=== PATIENT | female | born 1980 | race African-American/Black ===

== ENCOUNTER 2019-10-08 17:34 | Emergency (ER) | payer SELFPAY ==
[2019-10-08 17:42] VITALS: TEMP 98; BMI 20.5
--- NOTE | 2019-10-08 18:11 | PDOC ---
Documentation entered by Dejuan Simpson SCRIBE, acting as scribe for Anamaria West MD. Anamaria West MD: This documentation has been prepared by the Calvin gudino Angel, SCRIBE, under my direction and personally reviewed by me in its entirety. I confirm that the documentation accurately reflects all work, treatment, procedures, and medical decision making performed by me. History of Present Illness - General Chief Complaint: Alcohol intoxication Stated Complaint: INTOX History Source: EMS Exam Limitations: Intoxication - History of Present Illness Initial Comments: 10/08/19 17:39 The patient is a 36 year old female with a significant past medical history of who presents to the ED BIBA intoxicated. The patient was found laying in grass by [place] bus stop. Once EMS was able to bring her to her feet she started running into the street at which point police had EMS bring her into the ED. The patient denies any SI/HI, auditory and visual hallucinations, or any trauma. The patient admits to alcohol usage. Patient denies all medical complaints and is asking to charge her phone so she can go home. States she can either take a cab home or have her friend Dion or Akhil pick her up. Past History - Medical History Allergies/Adverse Reactions: Allergies Allergy/AdvReac Type Severity Reaction Status Date / Time No Known Allergies Allergy Verified 10/08/19 17:38 Home Medications: Ambulatory Orders NK [No Known Home Medication] 10/08/19 Review of Systems - Review of Systems Able to Perform ROS?: Yes Comments:: 10/08/19 17:48 GENERAL/CONSTITUTIONAL: No fever or chills. No weakness. HEAD, EYES, EARS, NOSE AND THROAT: No change in vision. No ear pain or discharge. No sore throat. CARDIOVASCULAR: No chest pain or shortness of breath. RESPIRATORY: No cough, wheezing, or hemoptysis. GASTROINTESTINAL: No nausea, vomiting, diarrhea or constipation. GENITOURINARY: No dysuria, frequency, or change in urination. MUSCULOSKELETAL: No joint or muscle swelling or pain. No neck or back pain. SKIN: No rash NEUROLOGIC: No headache, vertigo, loss of consciousness, or change in strength/sensation. ENDOCRINE: No increased thirst. No abnormal weight change. HEMATOLOGIC/LYMPHATIC: No anemia, easy bleeding, or history of blood clots. ALLERGIC/IMMUNOLOGIC: No hives or skin allergy. *Physical Exam - Physical Exam 10/08/19 17:48 GENERAL: Awake, alert, and fully oriented x3, in no acute distress HEAD: No signs of trauma EYES: PERRLA, EOMI, sclera anicteric, conjunctiva clear ENT: Auricles normal inspection, hearing grossly normal, nares patent, oropharynx clear without exudates. Moist mucosa NECK: Normal ROM, supple, no lymphadenopathy, JVD, or masses LUNGS: Breath sounds equal, clear to auscultation bilaterally. No wheezes, and no crackles HEART: Regular rate and rhythm, normal S1 and S2, no murmurs, rubs or gallops ABDOMEN: Soft, nontender, normoactive bowel sounds. No guarding, no rebound. No masses EXTREMITIES: Normal range of motion, no edema. No clubbing or cyanosis. No cords, erythema, or tenderness NEUROLOGICAL: Cranial nerves II through XII grossly intact. Normal speech, ambulatory with steady gait. SKIN: Warm, Dry, normal turgor, no rashes or lesions noted. Medical Decision Making - Medical Decision Making 10/08/19 18:05 36 yo F here with etoh intoxication, denies falls or trauma, no evidence of trauma on exam, Aox3 and ambulatory with steady gait, no indication for additional workup at this time and patient clinically sober. Plan: -spoke with patient's friend Dion who stated he would come to pick her up and patient agreeable to wait for him to leave -will d/c with return precautions, patient counseled on dangers of excessive etoh intake, recommend PMD f/u as needed This clinical encounter is taking place during a federal and state health care emergency attributable to the novel Baez Virus pandemic. The [place] of the Department of Health and Human Services has declared, pursuant to the Public Health Service Act 319F-3 (42 [place]C. 247d-6d), that a covered persons activities related to medical countermeasures against COVID-19 will be immune from liability under Federal and State law. Discharge - Discharge Information Problems reviewed: Yes Clinical Impression/Diagnosis: Alcohol intoxication Qualifiers: Complication of substance-induced condition: with unspecified complication Qualified Code(s): F10.929 - Alcohol use, unspecified with intoxication, unspecified Condition: Improved Disposition: HOME - Admission No - Follow up/Referral - Patient Discharge Instructions Patient Printed Discharge Instructions: DI for Alcohol Abuse Additional Instructions: You should avoid excessive alcohol use as this can be dangerous to your health. You should make sure to drink plenty of fluids at home. Return to the ED for new or worsening symptoms. Print Language: [place] - Post Discharge Activity
[2019-10-08 18:45] VITALS: BP 149/98; PULSE 87
== END 2019-10-08 18:47 | disposition home or self-care (01) ==
LOC: EDBD 17:34 → FER 17:34
DX: F10.929 Alcohol use, unspecified with intoxication, unspecified (principal)
CPT/HCPCS: 99283-25